=== PATIENT | male | born 1985 | race Caucasian/White ===

== ENCOUNTER 2021-02-18 14:20 | Emergency (ER) | payer SELFPAY ==
--- NOTE | 2021-02-18 14:25 | ED Integumentary General ---
General Stated Complaint: L HAND INDEX FINGER LAC Allergies and Home Medications Patient Home Medication List Home Medication List Reviewed: Yes (SULY CALVIN APRN) Physical Exam Vital Signs Capillary Refill : (SULY CALVIN APRN) Departure Departure-Patient Inst. Referrals: NO,LOCAL PHYSICIAN (PCP/Family) Primary Care Physician SULY CALVIN APRN Feb 18, 2021 14:25 DILIA LEON Mar 05, 2021 11:16
== END 2021-02-18 14:45 | disposition left against medical advice (07) ==
LOC: ER 14:21
DX: S61.211A Laceration without foreign body of left index finger without damage to nail, initial encounter (principal); X58.XXXA Exposure to other specified factors, initial encounter

== ENCOUNTER 2021-04-30 15:20 | Emergency (ER) | payer SELFPAY ==
[~2021-04-30] VITALS: Ht 177 cm; Wt 86.0 kg
--- NOTE | 2021-04-30 16:06 | ED General ---
General Chief Complaint: Fever-Adult/Adol Stated Complaint: FEVER/BODY ACHES/HEADACHE Nursing Triage Note: THE PT IS AMBULATORY TO THE ROOM WITHOUT DIFFICULTY. NO DISTRESS IS SEEN ON ARRIVAL. LOC IS NORMAL FOR THE PT. THE PT C/O FEVER/BODYACHES. STARTED LAST PM. Source of Information: Patient Exam Limitations: No Limitations (CHAZ LAGOS) History of Present Illness Date Seen by Provider: Apr 30, 2021 Time Seen by Provider: 14:00 Initial Comments 35yo M presents with CC body aches and fever that began last night. His girl friend tested positive for COVID yesterday and he began having symptoms shortly after that. He denies SOA, CHRISTOPHER, N/V, diarrhea and cough. He has taken Tylenol to alleviate symptoms which seemed to help, last dose was this morning. Patient smokes a pack of cigarettes per day and previously took HCTZ for hypertension but has been off of this for over a year. He had lost 40lbs and no longer required the HCTZ but put weight back on and today in the ED he is hypertensive at 160/100. Counseled patient to establish care again with PCP to address this. He is febrile with temperature of 38.4C and O2 sat normal at 96%. He is in no distress, resting comfortably awaiting COVID test results. He will be given dose of Tylenol while here. Patient informed about risks/benefits of monoclonal antibody use if COVID test comes back positive. Timing/Duration: 12-24 Hours Severity: Mild Associated Systoms: No Chest Pain, No Cough; Fever/Chills, Malaise; No Nausea/Vomiting, No Shortness of Air (CHAZ LAGOS) Allergies and Home Medications Allergies Coded Allergies: Penicillins (Verified Allergy, Unknown, 04/30/21) Patient Home Medication List Home Medication List Reviewed: Yes (JAYLEN GARNER MD) Review of Systems Review of Systems Constitutional: No chills, No diaphoresis, No dizziness; fever, malaise EENTM: No hearing loss, No blurred vision, No nose congestion, No throat pain, No throat swelling Respiratory: No cough, No phlegm, No short of breath, No wheezing Cardiovascular: No chest pain, No edema Gastrointestinal: No abdominal pain, No constipation, No diarrhea, No nausea, No vomiting Genitourinary: No dysuria, No frequency, No hematuria Musculoskeletal: No back pain, No joint swelling Skin: No change in color, No dryness Psychiatric/Neurological: Denies Anxiety, Denies Depressed Hematologic/Lymphatic: No Symptoms Reported Immunological/Allergic: no symptoms reported (KIARANetwork Foundation TechnologiesCHAZ [employer] STUDENT) Past Mifikkr-Nlrisl-Fbqlgs Hx Patient Social History Tobacco Use?: Yes Smoking Status: Current Everyday Smoker (1 pack per day for 10 years) Use of E-Cig and/or Vaping dev: No Substance use?: No Alcohol Use?: Yes Alcohol Frequency: Couple times a week (KIARANetwork Foundation TechnologiesDhiraj,CHAZ [employer] STUDENT) Past Medical History 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 oz. kg; 27.00 BMI Method: General Appearance: No Apparent Distress Eyes: Bilateral Eye Normal Inspection, Bilateral Eye PERRL HEENT: PERRL/EOMI, Pharynx Normal, Moist Mucous Membranes Neck: Normal Inspection, Non Tender, Supple Respiratory: Chest Non Tender, Lungs Clear, Normal Breath Sounds, No Accessory Muscle Use, No Respiratory Distress Cardiovascular: No Edema, No Gallop, No JVD, No Murmur, Normal Peripheral Pulses Gastrointestinal: Normal Bowel Sounds, Non Tender, Soft Back: No CVA Tenderness, No Vertebral Tenderness Extremity: Normal Capillary Refill, Normal Range of Motion, Non Tender, No Calf Tenderness Neurologic/Psychiatric: Alert, Oriented x3, No Motor/Sensory Deficits, Normal Mood/Affect, digital media planner II-XII Norm as Tested Skin: Normal Color, Warm/Dry Lymphatic: No Adenopathy (KIARANet[employer] TechnologiesDhirajCHAZ [employer] STUDENT) Progress/Results/Core Measures Suspected Sepsis SIRS Temperature: Pulse: 98 Respiratory Rate: 16 Blood Pressure 160 /100 Mean: 120 ([employer]) Results/Orders Lab Results Laboratory Tests Test 04/30/21 15:35 Range/Units Influenza Type A Antigen NEGATIVE NEGATIVE Influenza Type B Antigen NEGATIVE NEGATIVE SARS-CoV-2 RNA (RT-PCR) Positive H Negative (JAYLEN GARNER MD) My Orders Orders - JAYLEN GARNER MD Covid 19 Inhouse Test (04/30/21 16:14) Influenza A & B Antigens (04/30/21 16:14) Isolation Central Supply Req (04/30/21 16:14) Ibuprofen Tablet (Motrin Tablet) (04/30/21 16:30) (JAYLEN GARNER MD) Vital Signs/I&O 04/30/21 04/30/21 15:37 16:42 Temp 38.4 Pulse 98 90 Resp 16 16 B/P (MAP) 160/100 (120) 160/100 Pulse Ox 96 96 (JAYLEN GARNER MD) Vital Signs/I&O Capillary Refill : Less Than 3 Seconds (CHAZ LAGOS MED STUDENT) Blood Pressure Mean: 120 Progress Note : Time: 16:27 Progress Note 35-year-old male, smoker presents with chief complaint of fever, body aches. Lives with a girlfriend who tested positive for Covid yesterday. He is unvaccinated. Did take some Tylenol earlier today, this morning. Nothing since. Denies loss of taste or smell. Is not short of breath. Occasional cough. Denies purulence in his sputum. No nasal discharge. Minimal sore throat. No personal or family history of blood clot. Vital signs are stable. Oxygenation is great. Physical examination is grossly unremarkable. Lungs are clear. No edema in his legs or calf pain. I did discuss monoclonal antibody infusion with the patient. I advised him that it is still under emergency use authorization. We discussed the risks of not taking it as well as the benefits. He would be a candidate as he is unvaccinated. He is interested. The hospital is currently out of monoclonal antibody. I went ahead and placed an order however in case we get a shipment of antibody during the week. The patient has only been symptomatic for 2 days. He is given good return precautions. He verbalized understanding. Will be discharged home with instructions on supportive care. All questions are sought and answered. (JAYLEN GARNER MD) Departure Impression Primary Impression: COVID-19 Disposition: 01 HOME, SELF-CARE Condition: Stable Departure-Patient Inst. Decision time for Depature: 16:29 (JAYLEN GARNER MD) Referrals: [facility] [place],LOCAL PHYSICIAN (PCP) Primary Care Physician Patient Instructions: COVID-19 ED Add. Discharge Instructions: Drink plenty of fluids to stay well-hydrated. Take [id number] Tylenol extra strength 2 tablets every 6 hours for fever. You can also take [id number] ibuprofen, 3 tablets which is 600 mg every 6 hours with food for body aches and fever. Stay up and active, taking deep breaths. Wpgb-[id number] vitamins such as vitamin C, vitamin D and zinc can help support the immune system. You should also take a daily baby aspirin while you are sick. You should quarantine, self isolate for the next 7 days. Return to the emergency room for any worsening shortness of breath, cough, high fevers that are not responsive to Tylenol and ibuprofen or other concerning symptoms. You should get a pulse oximeter which measures her oxygen on your finger from one of your local pharmacies. Check your oxygen periodically throughout the nex t week. If your numbers are dropping below 90% you need to come back to the emergency room for reevaluation. Work/School Note: Work Release Form Date Seen in the Emergency Department: Apr 30, 2021 Return to Work: May 06, 2021 Other Restrictions Listed Below: Covid quarantine Verification and Attestation of Medical Student E/M Service A medical student performed and documented this service in my presence. I reviewed and verified all information documented by the medical student and made modifications to such information, when appropriate. I personally performed the physical exam and medical decision making. Jaylen Garner, Apr 30, 2021,16:31 (JAYLEN GARNER MD) CHAZ LAGOS MED STUDENT Apr 30, 2021 16:06 JAYLEN GARNER MD Apr 30, 2021 16:32
[2021-04-30] MEDS ORDERED: IBUPROFEN 600 MG (MOTRIN) TAB PO ONE (16:30)
[2021-04-30 16:42] VITALS: BP 160/100
== END 2021-04-30 16:43 | disposition home or self-care (01) ==
LOC: EDUNIT# 15:20 → ER 15:21
DX: U07.1 COVID-19 (principal); F17.210 Nicotine dependence, cigarettes, uncomplicated
CPT/HCPCS: 87636; 87804; 99283